=== PATIENT | female | born 1970 | race American Indian/Alaskan Native ===

== ENCOUNTER 2017-09-20 22:43 | Emergency (ER) | payer OTHER ==
[2017-09-20 23:43] LABS: Basophils # (Auto) 0.1 K/mm3 (0.0-0.1); Basophils % (Auto) 0.9 % (0.0-1.8); Eosinophils # (Auto) 0.2 K/mm3 (0.0-0.4); Hematocrit 29.4 % (30.3-42.9); Hemoglobin 9.2 gm/dl (10.1-14.3); Lymphocytes # (Auto) 3.2 K/mm3 (1.2-5.4); Lymphocytes % (Auto) 32.9 % (13.4-35.0); Mean Corpuscular HGB Conc 31 % (30-34); Monocytes # (Auto) 0.5 K/mm3 (0.0-0.8); Monocytes % (Auto) 5.2 % (0.0-7.3); Platelet Count 554 K/mm3 (140-440); Red Cell Distribution Width 19.8 % (13.2-15.2)
[2017-09-20 23:50] LABS: Mean Corpuscular Hemoglobin 22 pg (28-32); Mean Corpuscular Volume 70 fl (79-97)
[2017-09-21 01:45] LABS: BUN/Creatinine Ratio 11; Blood Urea Nitrogen 10 mg/dL (7-17); Calcium 8.8 mg/dL (8.4-10.2); Hemolysis Index 6
[2017-09-21 03:53] LABS: Bilirubin,Urine NEG (Negative); Blood,Urine NEG (Negative); Color,Urine Yellow (Yellow); Mucus,Urine FEW /HPF; Protein,Urine <15 mg/dL mg/dL (Negative); Urobilinogen,Urine < 2.0 mg/dL (<2.0)
[2017-09-21] MEDS ORDERED: NACL 0.9% 1000 ML 1,000 ML IV ONE (06:53)
--- NOTE | 2017-09-21 07:16 | Emergency Department Report ---
ED Dizziness HPI - General Chief Complaint: Dizziness Stated Complaint: LIGHT HEADED, FAST HEART BEAT HEADACHE Time Seen by Provider: 09/21/17 06:40 Source: patient Mode of arrival: Ambulatory Limitations: No Limitations - History of Present Illness Initial Comments: This patient's states that yesterday she had a dizzy spell yesterday she thinks was yesterday morning. She arrived in the ED at 2300 on 518. I did evaluate her head over 700 on 519. She says that she's been drinking lots of coffee off and on the receintstopped her blood pressure pill which she thinks her pressures been running high. She is here for evaluation of a dizzy spell with palpitations denied syncope think she is dehydrated she is here for evaluation of a headache as well. She does get headaches this headache was gradual in onset. Not sudden and exertional with intermediate intensity. She is here for evaluation of dizzy spells palpitations with excess caffeine and thinks her blood pressure is back up. They did stop her BP pill year ago. She denies chest pain at present symptoms are improving. No headache. No focal neuro complaints. No nausea vomiting diarrhea. Does get intermittent occasional heavy periods. No active bleeding at this time. No black or bloody stool. No focal neural complaints no stiff neck no headache no fever at this time MD Complaint: dizziness -: Gradual Timing: gradual onset Description: lightheadedness Severity: mild, moderate Improves With: nothing Worsens With: nothing Associated Symptoms: denies other symptoms, other (limitations with excess caffeine heart racing no chest pain or shortness of breath pain or swelling no numbness tingling or weakness no speech or visual complaints). denies: ataxia, chest pain, confusion, cough, diaphoresis, fever/chills, loss of appetite, malaise, rash, seizure, shortness of breath, syncope, weakness - Related Data Previous Rx's Medication Instructions Recorded Last Taken Type Hydrochlorothiazide [Hctz] 12.5 mg PO QDAY #15 capsule 09/21/17 Unknown Rx Allergies Allergy/AdvReac Type Severity Reaction Status Date / Time No Known Allergies Allergy Verified 09/21/17 08:23 ED Review of Systems ROS: Stated complaint: LIGHT HEADED, FAST HEART BEAT HEADACHE Other details as noted in HPI Comment: All other systems reviewed and negative Constitutional: denies: diaphoresis, fever, malaise Eyes: denies: eye discharge, vision change ENT: denies: dental pain, hearing loss, epistaxis Respiratory: denies: shortness of breath, SOB with exertion, SOB at rest, stridor Cardiovascular: palpitations. denies: chest pain, dyspnea on exertion, orthopnea, edema, syncope, paroxysmal nocturnal dyspnea Gastrointestinal: denies: abdominal pain, nausea, vomiting, diarrhea, constipation, hematemesis, melena Genitourinary: denies: urgency, dysuria Skin: denies: rash, lesions Neurological: denies: headache, weakness, numbness, paresthesias, confusion, abnormal gait, vertigo Hematological/Lymphatic: denies: easy bruising, swollen glands ED Past Medical Hx - Past Medical History Previous Medical History?: Yes Hx Hypertension: Yes - Surgical History Past Surgical History?: No - Social History Smoking Status: Never Smoker Substance Use Type: None - Medications Home Medications: Home Medications Medication Instructions Recorded Confirmed Last Taken Type Hydrochlorothiazide [Hctz] 12.5 mg PO QDAY #15 capsule 09/21/17 Unknown Rx ED Physical Exam - General Limitations: No Limitations General appearance: alert, in no apparent distress, anxious - Head Head exam: Present: atraumatic, normocephalic - Eye Eye exam: Present: PERRL, EOMI - ENT ENT exam: Present: normal exam, normal orophraynx - Neck Neck exam: Present: normal inspection. Absent: tenderness, meningismus - Respiratory Respiratory exam: Present: normal lung sounds bilaterally. Absent: respiratory distress, wheezes, rales, rhonchi, stridor - Cardiovascular Cardiovascular Exam: Present: regular rate, normal rhythm, other (pulses equal bilaterally) - GI/Abdominal GI/Abdominal exam: Present: soft. Absent: distended, tenderness, guarding, rebound, rigid, mass, pulsatile mass - Extremities Exam Extremities exam: Present: normal inspection, normal capillary refill. Absent: tenderness, pedal edema, joint swelling, calf tenderness - Back Exam Back exam: Present: normal inspection. Absent: CVA tenderness (R), CVA tenderness (L), muscle spasm, paraspinal tenderness, vertebral tenderness - Neurological Exam Neurological exam: Present: alert, oriented X3, CN II-XII intact. Absent: motor sensory deficit - Skin Skin exam: Present: warm. Absent: diaphoretic, erythema, urticaria, vesicles, petechiae, pallor ED Course Vital Signs 09/20/17 09/21/17 09/21/17 23:05 03:41 08:10 Temperature 98.5 F 98.3 F Pulse Rate 84 83 82 Respiratory 18 18 Rate Blood Pressure 194/102 212/105 Blood Pressure 202/102 [Right] O2 Sat by Pulse 99 100 Oximetry ED Medical Decision Making - Lab Data Result diagrams: 09/20/17 23:32 09/20/17 23:32 - EKG Data -: EKG Interpreted by Me EKG shows normal: sinus rhythm Rate: normal - EKG Data Interpretation: other (normal sinus rhythm no acute ischemic change) - Radiology Data Radiology results: report reviewed - Medical Decision Making Patient presented earlier in the day with a chronic headache that is similar to previous headache no no headache was appreciated. She has a nonfocal neuro exam. Headache is resolved in the ED. She does admit to frequent heavy caffeine use. In fellow dizzy this morning after she drank a lot of caffeine and had palpitations. She diddenies syncope. Symptoms seem to be related to the palpitations and the caffeine. Laboratory studies are unremarkable as is a chest x-ray. Physical exam was unremarkable with normal neuro and cardiac and pulmonary exams this time pulses are equal. Blood pressure was slightly elevated initially it did trend downward several some clonidine with improvement systolic of 150 given her chronic elevated blood pressure we would not want to the lower further at this time. However she will be started back on her HCTZ to see her regular doctor. They barely did stop the blood pressure pill year ago. She is also wo ssx end organ damage that would warrant further admission or evaluation for hypertensive emergency at this time. Symptoms seem to be related to caffeine use with palpitations. She is stable for outpatient follow-up. The patient did not have actual syncope. The neuro exam is nonfocal. She was not orthostatic. No evidence of GI bleeding. She did deny any vaginal bleeding at this time in this asymptomatic in the ED at this time with no further dizzy spells including on standing Critical care attestation.: If time is entered above; I have spent that time in minutes in the direct care of this critically ill patient, excluding procedure time. ED Disposition Clinical Impression: Dizzy spells, Palpitations, Excessive caffeine intake, Uncontrolled hypertension Disposition: DC-01 TO HOME OR SELFCARE Is pt being admited?: No Condition: Stable Instructions: Hypertension (ED), Dizziness (ED), Palpitations (ED) Additional Instructions: See the doctor listed on the regular doctor return if new alarming symptoms Prescriptions: Hydrochlorothiazide [Hctz] 12.5 mg PO QDAY #15 capsule Referrals: PRIMARY CARE, [Primary Care Provider] - 3-5 Days Time of Disposition: 09:48
[2017-09-21] MEDS ORDERED: CATAPRES PO ONE (07:50)
[2017-09-21] MEDS ORDERED: CATAPRES ONE (08:08)
[2017-09-21 08:46] VITALS: BP 212/105
--- NOTE | 2017-09-21 09:31 | XRay Report ---
FINAL REPORT EXAM: XR CHEST ROUTINE 2V HISTORY: Lightheadedness/Dizziness TECHNIQUE: Frontal and lateral views of the chest. PRIORS: None currently available. FINDINGS: Cardiac silhouette is within normal limits. There is no effusion. There is no pneumothorax. There is no consolidation. There are no suspicious osseous lesions. IMPRESSION: No acute cardiopulmonary findings.
== END 2017-09-21 10:15 | disposition home or self-care (01) ==
LOC: ED 22:43
DX: R42 Dizziness and giddiness (principal); R00.2 Palpitations; I10 Essential (primary) hypertension; F15.129 Other stimulant abuse with intoxication, unspecified; Z79.899 Other long term (current) drug therapy
CPT/HCPCS: 36415; 71046; 80048; 81001; 84484; 84703; 85025; 93005; 93010; 96360; 99284; G0480; J7030; 80320

== ENCOUNTER 2021-09-04 09:11 | Emergency (ER) | payer SELFPAY ==
[2021-09-04 09:21] VITALS: BP 189/103
[2021-09-04] MEDS ORDERED: MORPHINE 4 MG/1 ML INJ IV ONE (10:42)
[2021-09-04] MEDS ORDERED: ONDANSETRON 4 MG/2 ML INJ IV ONE (10:42)
[2021-09-04] MEDS ORDERED: SODIUM CHLORIDE 0.9% 1000 ML 1,000 ML IV ONE (10:42)
[2021-09-04 10:45] LABS: Hematocrit 27.3 % (30.3-42.9); Hemoglobin 8.2 gm/dl (10.1-14.3); Mean Corpuscular HGB Conc 30 % (30-34); Platelet Count 520 K/mm3 (140-440); Red Blood Count 4.15 M/mm3 (3.65-5.03); Red Cell Distribution Width 18.8 % (13.2-15.2)
[2021-09-04 10:46] LABS: Mean Corpuscular Volume 66 fl (79-97)
[2021-09-04 11:04] LABS: Bacteria,Urine 1+ /HPF (Negative); Bilirubin,Urine NEG (Negative); Blood,Urine NEG (Negative); Color,Urine Yellow (Yellow); Mucus,Urine FEW /HPF; Protein,Urine <15 mg/dL mg/dL (Negative); Urobilinogen,Urine < 2.0 mg/dL (<2.0); WBC,Urine < 1.0 /HPF (0.0-6.0)
[2021-09-04 11:05] LABS: Alanine Aminotransferase 8 units/L (7-56); Albumin 4.1 g/dL (3.9-5); BUN/Creatinine Ratio 10; Blood Urea Nitrogen 10 mg/dL (7-17); Calcium 9.1 mg/dL (8.4-10.2); Hemolysis Index 0
--- NOTE | 2021-09-04 11:46 | Emergency Department Report ---
ED Abdominal Pain HPI - General Chief Complaint: Abdominal Pain Stated Complaint: LEFT SIDE HURT/DIARRHEA Time Seen by Provider: 09/04/21 09:48 Source: patient Mode of arrival: Ambulatory Limitations: No Limitations - History of Present Illness Initial Comments: Patient is a 51-year-old female that comes to the emergency room complaining of diffuse abdominal pain. She states that she has no fever or chills. She has no dysuria. No vaginal discharge. Patient is currently still menstruating. Her last menstrual period was August 04. She endorses menopausal symptoms. She also has a history of fibroids. She states that from time to time she has heavy bleeding. She does not follow-up with an [facility]. She denies constipation or diarrhea. She has had no vomiting. She does have some nausea. She states that she is woke gassy. Patient is ambulatory, not ill nontoxic on arrival to the ER. Blood pressure noted to be elevated. She states that she has hypertension but she is not taking medications. At one time she was on hydrochlorothiazide. She denies chest pain or shortness of breath. MD Complaint: abdominal pain -: Gradual, week(s) Location: diffuse Migration to: no migration Severity scale (0 -10): 4 Quality: aching Consistency: intermittent Improves With: nothing Worsens With: nothing Associated Symptoms: denies other symptoms. denies: nausea, vomiting, diarrhea, fever, chills, constipation, dysuria, hematemesis, hematochezia, melena, anorexia, syncope - Related Data LMP (females 10-50): other (August 04) Previous Rx's Medication Instructions Recorded Last Taken Type Ondansetron [Zofran Odt] 4 mg PO Q8HR PRN #10 tab.rapdis 09/04/21 Unknown Rx hydroCHLOROthiazide [Hctz] 12.5 mg PO QDAY #15 capsule 09/04/21 Unknown Rx Allergies Allergy/AdvReac Type Severity Reaction Status Date / Time No Known Allergies Allergy Verified 09/21/17 08:23 ED Review of Systems ROS: Stated complaint: LEFT SIDE HURT/DIARRHEA Other details as noted in HPI Comment: All other systems reviewed and negative ED Past Medical Hx - Past Medical History Previous Medical History?: Yes Hx Hypertension: Yes Additional medical history: Fibroids - Surgical History Past Surgical History?: No - Family History Family history: no significant - Social History Smoking Status: Never Smoker Substance Use Type: None - Medications Home Medications: Home Medications Medication Instructions Recorded Confirmed Last Taken Type Ondansetron [Zofran Odt] 4 mg PO Q8HR PRN #10 tab.rapdis 09/04/21 Unknown Rx hydroCHLOROthiazide [Hctz] 12.5 mg PO QDAY #15 capsule 09/04/21 Unknown Rx ED Physical Exam - General Limitations: No Limitations General appearance: alert, in no apparent distress - Head Head exam: Present: atraumatic, normocephalic - Eye Eye exam: Present: normal appearance - ENT ENT exam: Present: mucous membranes moist - Neck Neck exam: Present: normal inspection - Respiratory Respiratory exam: Present: normal lung sounds bilaterally. Absent: respiratory distress - Cardiovascular Cardiovascular Exam: Present: regular rate, normal rhythm. Absent: systolic murmur, diastolic murmur, rubs, gallop - GI/Abdominal GI/Abdominal exam: Present: soft, normal bowel sounds - Extremities Exam Extremities exam: Present: normal inspection - Back Exam Back exam: Present: normal inspection - Neurological Exam Neurological exam: Present: alert, oriented X3 - Psychiatric Psychiatric exam: Present: normal affect, normal mood - Skin Skin exam: Present: warm, dry, intact, normal color. Absent: rash ED Course Vital Signs 09/04/21 09:19 Temperature 98.0 F Pulse Rate 87 Respiratory 18 Rate Blood Pressure 189/103 [Right] O2 Sat by Pulse 97 Oximetry ED Medical Decision Making - Lab Data Result diagrams: 09/04/21 09:41 09/04/21 09:41 - Medical Decision Making Lab Results 09/04/21 09/04/21 09/04/21 Range/Units 09:41 09:41 10:40 WBC 8.5 (4.5-11.0) K/mm3 RBC 4.15 (3.65-5.03) M/mm3 Hgb 8.2 L (10.1-14.3) gm/dl Hct 27.3 L (30.3-42.9) % MCV 66 L (79-97) fl MCH 20 L (28-32) pg MCHC 30 (30-34) % RDW 18.8 H (13.2-15.2) % Plt Count 520 H (140-440) K/mm3 Add Manual Diff Complete Total Counted 100 Seg Neuts % (Manual) 57.0 (40.0-70.0) % Band Neutrophils % 0 % Lymphocytes % (Manual) 27.0 (13.4-35.0) % Reactive Lymphs % (Man) 0 % Monocytes % (Manual) 13.0 H (0.0-7.3) % Eosinophils % (Manual) 3.0 (0.0-4.3) % Basophils % (Manual) 0 (0.0-1.8) % Metamyelocytes % 0 % Myelocytes % 0 % Promyelocytes % 0 % Blast Cells % 0 % Nucleated RBC % Not Reportable Seg Neutrophils # Man 4.8 (1.8-7.7) K/mm3 Band Neutrophils # 0.0 K/mm3 Lymphocytes # (Manual) 2.3 (1.2-5.4) K/mm3 Abs React Lymphs (Man) 0.0 K/mm3 Monocytes # (Manual) 1.1 H (0.0-0.8) K/mm3 Eosinophils # (Manual) 0.3 (0.0-0.4) K/mm3 Basophils # (Manual) 0.0 (0.0-0.1) K/mm3 Metamyelocytes # 0.0 K/mm3 Myelocytes # 0.0 K/mm3 Promyelocytes # 0.0 K/mm3 Blast Cells # 0.0 K/mm3 WBC Morphology Not Reportable Hypersegmented Neuts Not Reportable Hyposegmented Neuts Not Reportable Hypogranular Neuts Not Reportable Smudge Cells Not Reportable Toxic Granulation Not Reportable Toxic Vacuolation Not Reportable Dohle Bodies Not Reportable Pelger-Huet Anomaly Not Reportable Toby Rods Not Reportable Platelet Estimate Consistent w auto Clumped Platelets Not Reportable Plt Clumps, EDTA Not Reportable Large Platelets Few Giant Platelets Not Reportable Platelet Satelliting Not Reportable Plt Morphology Comment Not Reportable RBC Morphology Not Reportable Dimorphic RBCs Not Reportable Polychromasia 1+ Hypochromasia 2+ Poikilocytosis Not Reportable Anisocytosis Not Reportable Microcytosis 1+ Macrocytosis Not Reportable Spherocytes Not Reportable Pappenheimer Bodies Not Reportable Sickle Cells Not Reportable Target Cells Not Reportable Tear Drop Cells Not Reportable Ovalocytes Not Reportable Helmet Cells Not Reportable [place] Bodies Not Reportable [place] Rings Not Reportable Elian Cells Not Reportable Bite Cells Not Reportable Crenated Cell Not Reportable Elliptocytes Not Reportable Acanthocytes (Spur) Not Reportable Rouleaux Not Reportable Hemoglobin C Crystals Not Reportable Schistocytes Not Reportable Malaria parasites Not Reportable Дмитрий Bodies Not Reportable Hem Pathologist Commnt No Sodium 142 (137-145) mmol/L Potassium 4.3 (3.6-5.0) mmol/L Chloride 108.2 H (98-107) mmol/L Carbon Dioxide 23 (22-30) mmol/L Anion Gap 15 mmol/L BUN 10 (7-17) mg/dL Creatinine 1.0 (0.6-1.2) mg/dL Estimated GFR > 60 ml/min BUN/Creatinine Ratio 10 % Glucose 91 (65-100) mg/dL Calcium 9.1 (8.4-10.2) mg/dL Total Bilirubin 0.40 (0.1-1.2) mg/dL AST 14 (5-40) units/L ALT 8 (7-56) units/L Alkaline Phosphatase 106 (35-129) units/L Total Protein 8.0 (6.3-8.2) g/dL Albumin 4.1 (3.9-5) g/dL Albumin/Globulin Ratio 1.1 % Lipase 30 (13-60) units/L Urine Color Yellow (Yellow) Urine Turbidity Clear (Clear) Urine pH 5.0 (5.0-7.0) Ur Specific [place] 1.015 (1.003-1.030) Urine Protein <15 mg/dl (Negative) mg/dL Urine Glucose (UA) Neg (Negative) mg/dL Urine Ketones Neg (Negative) mg/dL Urine Blood Neg (Negative) Urine Nitrite Neg (Negative) Urine Bilirubin Neg (Negative) Urine Urobilinogen < 2.0 (<2.0) mg/dL Ur Leukocyte Esterase Neg (Negative) Urine WBC (Auto) < 1.0 (0.0-6.0) /HPF Urine RBC (Auto) 1.0 (0.0-6.0) /HPF U Epithel Cells (Auto) 1.0 (0-13.0) /HPF Urine Bacteria (Auto) 1+ (Negative) /HPF Urine Mucus Few /HPF Abdominal exam is unremarkable. Labs noted Patient has chronic anemia. This is in the setting of uterine fibroids. UA noted. Patient medicated with normal saline, Zofran and morphine for pain. Her labs then all came back normal. After receiving her medications I found her sitting in the room playing on her phone, drinking water with no difficulty, and asking to go home. I have educated patient on the findings of her lab works. I discussed with her my concerns regarding her fibroids, anemia, blood pressure, and discussed with her recommendations for colonoscopy. No indication for imaging at this point. Patient being discharged home with discharge plan of care including diet, act ivities, medications and follow-up. She verbalizes understanding of plan of care. I have given her Zofran for any nausea. Asked her to use [id number] medications for any pain. Discussed the use of Gas-X for any gas that she has. She has been given appropriate follow-up for PCP, GI and OB/ [facility]. - Differential Diagnosis Acute on chronic fibroids, rule out UTI, rule out gastroenteritis, gastriti Critical care attestation.: If time is entered above; I have spent that time in minutes in the direct care of this critically ill patient, excluding procedure time. ED Disposition Clinical Impression: Acute on chronic blood loss anemia, History of hypertension, History of uterine fibroid, Noncompliance with medication regimen Abdominal pain Qualifiers: Abdominal location: generalized Qualified Code(s): R10.84 - Generalized abdominal pain Obesity Qualifiers: Obesity type: due to excess calories Disposition: 01 HOME / SELF CARE / HOMELESS Is pt being admited?: No Does the pt Need Aspirin: No Condition: Stable Instructions: Hypertension, Adult, Abdominal Pain (ED) Additional Instructions: Monitor your blood pressure. It was elevated today. I have given you referral to our primary care doctor. I have also given you a refill of your hydrochlorothiazide which is your previously prescribed blood pressure medicine. Follow-up with [facility]. I have given you a referral to OB. They will need to follow you for your fibroids especially given the setting of your anemia. Follow-up with GI doctor should you have ongoing abdominal issues. You are over 50 and should consider colonoscopy. Referral has been given below Advance diet as tolerated Stay well-hydrated with water Motrin or Tylenol for pain I have given you Zofran for nausea if you should needed at home Prescriptions: hydroCHLOROthiazide [Hctz] 12.5 mg PO QDAY #15 capsule Ondansetron [Zofran Odt] 4 mg PO Q8HR PRN #10 tab.rapdis PRN Reason: Vomiting Referrals: AUSTIN RO MD [Primary Care Provider] - 3-5 Days MAYTE BARROW MD [Staff Physician] - 3-5 Days VICKY SPARKS MD [Staff Physician] - 3-5 Days Time of Disposition: 13:36
[2021-09-04 12:12] LABS: Basophils % (Manual) 0 % (0.0-1.8); Hypochromasia 2+; Total Cells Counted 100
[2021-09-04 12:13] LABS: Large Platelets Few; Platelet Estimate Consistent w Auto
== END 2021-09-04 14:02 | disposition home or self-care (01) ==
LOC: ED 09:11
DX: R10.9 Unspecified abdominal pain (principal); E66.9 Obesity, unspecified; D64.9 Anemia, unspecified; I10 Essential (primary) hypertension; D25.9 Leiomyoma of uterus, unspecified; Z91.14 Patient's other noncompliance with medication regimen; Z79.899 Other long term (current) drug therapy
CPT/HCPCS: 36415; 80053; 81001; 83690; 85007; 85025; 96361; 96374; 96375; 99283; J2270; J2405; J7030